=== PATIENT | female | born 1945 | race Caucasian/White ===

== ENCOUNTER 2024-10-29 09:22 | Outpatient (CLI) | payer MEDICARE, OTHER | END 2024-10-29 09:23 | disposition home or self-care (01) | LOC: SCSRAD 09:22 | PROVIDERS: ATTEND Orthopaedic Surgery | DX: M54.50 Low back pain, unspecified (principal); M48.56XA Collapsed vertebra, not elsewhere classified, lumbar region, initial encounter for fracture; M48.061 Spinal stenosis, lumbar region without neurogenic claudication; M48.07 Spinal stenosis, lumbosacral region; M47.816 Spondylosis without myelopathy or radiculopathy, lumbar region; M47.817 Spondylosis without myelopathy or radiculopathy, lumbosacral region | CPT/HCPCS: 72100 ==